=== PATIENT | male | born 1995 | race African-American/Black ===

== ENCOUNTER 2018-05-21 21:39 | Emergency (ER) | payer OTHER, SELFPAY ==
[2018-05-21 21:41] VITALS: BP 130/85; PULSE 90; RESP 15; TEMP 36.7; O2SAT 98; BMI 27.0
--- NOTE | 2018-05-21 22:32 | ED_ITS ---
HPI - Eye Problem General Chief complaint: Eye Problems Stated complaint: LEFT EYE INFECTION Time Seen by Provider: 05/21/18 21:54 Source: patient Mode of arrival: ambulatory Limitations: no limitations History of Present Illness HPI Narrative: Otherwise healthy 23-year-old male here for evaluation of left eye irritation. Patient states that he does wear contacts however [place] the past [place] weeks and has not worn them. He stated that his symptoms started this morning. Has a foreign body sensation left eye. Does have some eye drainage. Right eye is unremarkable. Has not tried anything for prior to arrival Related Data Previous Rx's Medication Instructions Recorded polymyxin B sulf-trimethoprim 1 drop EYE-LEFT QID 7 Days #10 ml 05/21/18 [Polytrim] Allergies Allergy/AdvReac Type Severity Reaction Status Date / Time No Known Drug Allergies Allergy Verified 05/21/18 21:41 Review of Systems Constitutional Denies fever(s) and Denies headache(s) Eyes Comments: Left eye irritation with drainage and gritty sensation ENT Ears, Nose, Mouth, and Throat: Denies vertigo, Denies dizziness, Denies headache (s), Denies neck pain, Denies disequilibrium, Denies tinnitus, Denies sore throat and Denies throat swelling Cardiovascular Denies dyspnea Respiratory Denies dyspnea Musculoskeletal Denies neck pain Integumentary/Breasts Denies rash Neurologic Denies vertigo, Denies dizziness, Denies headache(s) and Denies disequilibrium Allergic/Immunologic Denies throat swelling PFSH Medical History Healthy adult (Acute) Surgical History No pertinent past surgical history (Acute) Social History Smoking Status: Current some day smoker Exam Initial Vital Signs Initial Vital Signs: Vital Signs Temperature 98.0 F 05/21/18 21:41 Pulse Rate 90 05/21/18 21:41 Respiratory Rate 15 05/21/18 21:41 Blood Pressure 130/85 05/21/18 21:41 Pulse Oximetry 98 05/21/18 21:41 Const General: cooperative, healthy appearing, comfortable, well developed, well groomed and No acute distress Orientation: alert, awake and oriented x3 HENMT Head: normal to inspection and normocephalic Ears: TM's normal bilaterally Nose: external nose normal Face and sinus: normal facial exam Mouth: oral mucosae normal Eyes Pupils: PERRL EOM: EOM intact bilaterally Other: Right eye unremarkable Left eye no uptake with fluorescein. No foreign body seen Does have appears to be purulent discharge in lower eyelid Scleral injection Resp Effort & Inspection: normal respiratory effort Skin Lesions: no lesions Rashes: no rashes Neuro General: alert, awake and oriented x3 Extrem General: normal to inspection and capillary refill normal Psych Appearance: grossly normal and well kempt Course Orders Ordered: Discontinued Medications Polymyxin/Trimethoprim Sulfate (Polytrim Prepack) 1 bottle MISC SEEINSTR ONE Stop: 05/21/18 22:43 Last Admin: 05/21/18 22:53 Dose: 1 bottle Vital Signs - 8 hr 05/21/18 21:41 Temperature 98.0 F Pulse Rate 90 Respiratory Rate 15 Blood Pressure 130/85 Pulse Oximetry 98 MDM - Eye Problem MDM Narrative Medical decision making narrative: No foreign body noted. No uptake with fluorescein concerning for ulcer. He does have what appears to be purulent discharge in lower eyelid. Some concern for bacterial conjunctivitis. Will send home with antibacterial drops. Patient was given return precautions. He is informed not to wear his contact lenses until his symptoms heal. He expressed understanding and agreement plan. Discharge Plan Departure Patient Disposition: Home Clinical Impression: Conjunctivitis Discharge Date/Time: 05/21/18 22:57 Interventions: ED Discharge Assessment Last Done: 05/21/18 22:57 Instructions: Conjunctivitis Activity Restrictions/Additional Instructions: I do recommend that you practice good hand hygiene because this type of infection can be spread to others. Do not share your towels with anyone else. Take the antibiotics as directed. Return to the emergency department for any new or worsening symptoms Prescriptions: New polymyxin B sulf-trimethoprim [Polytrim] 10,000 unit- 1 mg/mL drops 1 drop EYE-LEFT QID 7 Days Qty: 10 RF: 0
[2018-05-21] MEDS: POLYMY B/TRIMETH OPHTH PREPACK 1 BOTTLE MISC (22:53)
== END 2018-05-21 22:57 | disposition home or self-care (01) ==
PROVIDERS: Emergency Provider Emergency Medicine
DX: H10.9 Unspecified conjunctivitis (principal)
CPT/HCPCS: 99283